=== PATIENT | female | born 1975 | race Caucasian/White ===

== ENCOUNTER 2019-05-14 21:14 | Emergency (ER) | payer BC ==
[~2019-05-14] VITALS: Ht 170.2 cm; Wt 61.2 kg
[2019-05-14] MEDS ORDERED: MAXALT MLT ODT10 M1 PO (21:34)
[2019-05-14] MEDS ORDERED: BUTALB-APAP-CA1 EACH PO (23:15)
[2019-05-14] MEDS ORDERED: ZOFRAN ODT4 MG PO (23:15)
[2019-05-14] MEDS ORDERED: HYDROCODON-ACE1 EAC7 PO (23:15)
[2019-05-14 23:28] VITALS: BP 109/72
== END 2019-05-14 23:29 | disposition home or self-care (01) ==
LOC: M.ERS 21:14
DX: G43.909 Migraine, unspecified, not intractable, without status migrainosus (principal)